=== PATIENT | female | born 1965 | race Caucasian/White ===

== ENCOUNTER 2018-10-06 18:55 | Observation (INO) | payer OTHER ==
[2018-10-06] MEDS ORDERED: Zofran 4 MG/2 ML VIAL IV STA (19:24)
[2018-10-06] MEDS ORDERED: Rocephin 1000 MG INJ IV STA (19:24)
[2018-10-06] MEDS ORDERED: Sodium Chloride 0.9% 1000 ML 1,000 ML IV STA (19:24)
[2018-10-06] MEDS ORDERED: TYLENOL 325 MG PO STA (19:24)
--- NOTE | 2018-10-06 19:24 | ERPHSYRPT ---
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: Acetaminophen Associated Symptoms: muscle aches, sore throat, weakness Allergies/Adverse Reactions: No Known Drug Allergies Allergy (Unverified 10/06/18 19:13) Home Medications: Metformin HCl 500 mg [Glucophage 500 MG] 1 tablet PO DAILY 10/06/18 [ History] - Review of Systems Constitutional: Fever, Fatigue, Malaise, Weakness, No Chills Eyes: No Symptoms Ears, Nose, & Throat: Nose Congestion, Throat Pain Respiratory: Cough, No Dyspnea Cardiac: No Chest Pain, No Edema, No Syncope Abdominal/Gastrointestinal: Nausea, No Abdominal Pain, No Vomiting, No Diarrhea Genitourinary Symptoms: No Dysuria Musculoskeletal: Myalgias, No Back Pain, No Neck Pain Skin: No Rash Neurological: Dizziness, No Focal Weakness, No Sensory Changes Psychological: No Symptoms Endocrine: No Symptoms Hematologic/Lymphatic: No Symptoms Immunological/Allergic: No Symptoms All Other Systems: Reviewed and Negative - Nursing Vital Signs Nursing Vital Signs: Initial Vital Signs Temperature 102.6 F 10/06/18 19:15 Pulse Rate 133 H 10/06/18 19:15 Respiratory Rate 18 10/06/18 19:15 Blood Pressure 142/86 10/06/18 19:15 O2 Sat by Pulse Oximetry 94 L 10/06/18 19:15 Pain Scale Pain Intensity 7 - Physical Exam General Appearance: no apparent distress, alert Eye Exam: PERRL/EOMI ENT Exam: nasal congestion, pharyngeal erythema, airway intact, No tonsillar exudate, No muffled/hoarse voice Neck Exam: non-tender, supple, full range of motion, trachea midline, No stiff neck, No Brudzinski's sign, No Kernig's sign, No meningismus Respiratory Exam: normal breath sounds, lungs clear, no respiratory distress, No accessory muscle use, No wheezing Cardiovascular/Chest Exam: normal heart sounds, regular rate/rhythm, No murmur, No edema Gastrointestinal/Abdominal Exam: soft, non tender, no distention, no mass, no guarding Extremity Exam: non-tender, normal range of motion, normal inspection, normal capillary refill Neurologic Exam: alert, oriented x 3, cooperative, 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, normal mood/affect, sensation nml, No motor deficits Skin Exam: normal color, warm, dry, No rash SpO2 Interpretation: borderline oxygenation O2 Delivery: Room Air - Course Nursing assessment & vital signs reviewed: Yes EKG Interpreted by Me: Sinus Tach, NORMAL AXIS, NORMAL INTERVALS, Non-specific ST Changes - Radiology Exams Chest X-ray Interpretation: Reviewed by me, Infiltrates (RML), Pneumonia Ordered Tests: Active Orders 24 hr Category Date Time Status Custom Miller STAT Care 10/06/18 19:27 Active Clean Catch Urine Specimen STAT Care 10/06/18 19:24 Active EKG-ER Only STAT Care 10/06/18 19:24 Active IV Insertion STAT Care 10/06/18 19:24 Active Pulse Oximetry (ED) STAT Care 10/06/18 19:24 Active CHEST 2 VIEWS (PA AND LAT) Stat Exams 10/06/18 19:26 Taken CBC W DIFF Stat Lab 10/06/18 19:50 Completed CMP Stat Lab 10/06/18 19:50 Completed HCG QUALITATIVE,SERUM Stat Lab 10/06/18 19:50 Completed Lactic Acid Stat Lab 10/06/18 20:43 Completed Dyer Screen Stat Lab 10/06/18 19:50 Completed T4 (Thyroxine) Stat Lab 10/06/18 19:50 Completed TROPONIN Q3H Lab 10/06/18 19:50 Completed TROPONIN Q3H Lab 10/06/18 22:30 Ordered TSH [TSH, 3RD Generation] Stat Lab 10/06/18 19:50 Completed UA W/RFX UR CULTURE Stat Lab 10/06/18 19:26 Uncollected Medication Summary Generic Name Dose Route Start Last Admin Trade Name Freq PRN Reason Stop Dose Admin Ceftriaxone Sodium mg 10/06/18 19:24 Rocephin 1000 Mg Inj IV 10/06/18 19:25 STAT STA Discontinued Medications Generic Name Dose Route Start Last Admin Trade Name Freq PRN Reason Stop Dose Admin Acetaminophen 650 mg 10/06/18 19:24 10/06/18 19:54 Tylenol 325 Mg PO 10/06/18 19:25 650 mg STAT STA Administration Acetaminophen Confirm 10/06/18 19:46 Tylenol 325 Mg Administered 10/06/18 19:47 Dose 650 mg .ROUTE .STK-MED ONE Sodium Chloride 1,000 mls @ 999 mls/hr 10/06/18 19:24 10/06/18 19:50 Sodium Chloride 0.9% 1000 Ml IV 10/06/18 20:24 999 mls/hr .Q1H1M STA Administration Sodium Chloride Confirm 10/06/18 19:47 Sodium Chloride 0.9% 1000 Ml Administered 10/06/18 19:48 Dose 1,000 mls @ ud .ROUTE .STK-MED ONE Azithromycin 500 mg in 250 mls @ 250 mls/hr 10/06/18 20:03 Zithromax 500 Mg/ 250 Ml Nacl Premix IV 10/06/18 21:02 STAT STA Ceftriaxone Sodium/Dextrose 1 g in 50 mls @ 100 mls/hr 10/06/18 20:17 20:24 Rocephin 1 Gm-D5w 50 Ml Bag IV 10/06/18 20:46 100 mls/hr STAT STA 100 mls/hr Administration Ceftriaxone Sodium/Dextrose Confirm 10/06/18 20:19 Rocephin 1 Gm-D5w 50 Ml Bag Administered 10/06/18 20:20 Dose 1 g in 50 mls @ ud IV .STK-MED ONE Ondansetron HCl 4 mg 10/06/18 19:24 10/06/18 19:49 Zofran 4 Mg/2 Ml Vial IV 10/06/18 19:25 4 mg STAT STA Administration Ondansetron HCl Confirm 10/06/18 19:46 Zofran 4 Mg/2 Ml Vial Administered 10/06/18 19:47 Dose 4 mg .ROUTE .STK-MED ONE Lab/Rad Data: Laboratory Result Diagrams 10/06/18 19:50 10/06/18 19:50 Laboratory Results 10/06/18 10/06/18 10/06/18 Range/Units 20:43 19:50 19:50 WBC (4.0-10.5) K/mm3 RBC (4.1-5.4) M/mm3 Hgb (12.0-16.0) gm/dl Hct (35-47) % MCV (78-100) fl MCH (26-32) pg MCHC (32-36) g/dl RDW (11.5-14.0) % Plt Count (150-450) K/mm3 MPV (6-9.5) fl Gran % (36.0-66.0) % Eos # (Auto) (0-0.5) Absolute Lymphs (auto) (1.0-4.6) Absolute Monos (auto) (0.0-1.3) Lymphocytes % (24.0-44.0) % Monocytes % (0.0-12.0) % Eosinophils % (0.00-5.0) % Basophils % (0.0-0.4) % Absolute Granulocytes (1.4-6.9) Basophils # (0-0.4) Sodium (137-145) mmol/L Potassium (3.5-5.1) mmol/L Chloride (98-107) mmol/L Carbon Dioxide (22-30) mmol/L Anion Gap (5-15) MEQ/L BUN (7-17) mg/dL Creatinine (0.52-1.04) mg/dL Estimated GFR ML/MIN Glucose (74-106) mg/dL Lactic Acid 1.2 (0.4-2.0) Calcium (8.4-10.2) mg/dL Total Bilirubin (0.2-1.3) mg/dL AST (14-36) U/L ALT (0-35) U/L Alkaline Phosphatase (38-126) U/L Troponin I (0.000-0.034) ng/mL Serum Total Protein (6.3-8.2) g/dL Albumin (3.5-5.0) g/dL Thyroxine (T4) 8.21 (5.53-10.96) ug/dL TSH 3rd Generation 1.430 (0.47-4.68) mIU/L Serum , Qual (Negative) Monoscreen (Negative) Influenza Type A Ag (NEGATIVE) Influenza Type B Ag (NEGATIVE) RSV (PCR) (Negative) Group A Strep Antibody (NEGATIVE) 10/06/18 10/06/18 10/06/18 Range/Units 19:50 19:50 19:50 WBC (4.0-10.5) K/mm3 RBC (4.1-5.4) M/mm3 Hgb (12.0-16.0) gm/dl Hct (35-47) % MCV (78-100) fl MCH (26-32) pg MCHC (32-36) g/dl RDW (11.5-14.0) % Plt Count (150-450) K/mm3 MPV (6-9.5) fl Gran % (36.0-66.0) % Eos # (Auto) (0-0.5) Absolute Lymphs (auto) (1.0-4.6) Absolute Monos (auto) (0.0-1.3) Lymphocytes % (24.0-44.0) % Monocytes % (0.0-12.0) % Eosinophils % (0.00-5.0) % Basophils % (0.0-0.4) % Absolute Granulocytes (1.4-6.9) Basophils # (0-0.4) Sodium (137-145) mmol/L Potassium (3.5-5.1) mmol/L Chloride (98-107) mmol/L Carbon Dioxide (22-30) mmol/L Anion Gap (5-15) MEQ/L BUN (7-17) mg/dL Creatinine (0.52-1.04) mg/dL Estimated GFR ML/MIN Glucose (74-106) mg/dL Lactic Acid (0.4-2.0) Calcium (8.4-10.2) mg/dL Total Bilirubin (0.2-1.3) mg/dL AST (14-36) U/L ALT (0-35) U/L Alkaline Phosphatase (38-126) U/L Troponin I < 0.012 (0.000-0.034) ng/mL Serum Total Protein (6.3-8.2) g/dL Albumin (3.5-5.0) g/dL Thyroxine (T4) (5.53-10.96) ug/dL TSH 3rd Generation (0.47-4.68) mIU/L Serum , Qual NEGATIVE (Negative) Monoscreen NEGATIVE (Negative) Influenza Type A Ag POSITIVE (NEGATIVE) Influenza Type B Ag NEGATIVE (NEGATIVE) RSV (PCR) NEGATIVE (Negative) Group A Strep Antibody POSITIVE (NEGATIVE) 10/06/18 10/06/18 Range/Units 19:50 19:50 WBC 5.4 (4.0-10.5) K/mm3 RBC 4.35 (4.1-5.4) M/mm3 Hgb 12.7 (12.0-16.0) gm/dl Hct 39.0 (35-47) % MCV 89.7 (78-100) fl MCH 29.2 (26-32) pg MCHC 32.6 (32-36) g/dl RDW 13.3 (11.5-14.0) % Plt Count 171 (150-450) K/mm3 MPV 11.2 H (6-9.5) fl Gran % 81.6 H (36.0-66.0) % Eos # (Auto) 0.02 (0-0.5) Absolute Lymphs (auto) 0.60 L (1.0-4.6) Absolute Monos (auto) 0.36 (0.0-1.3) Lymphocytes % 11.1 L (24.0-44.0) % Monocytes % 6.7 (0.0-12.0) % Eosinophils % 0.4 (0.00-5.0) % Basophils % 0.2 (0.0-0.4) % Absolute Granulocytes 4.41 (1.4-6.9) Basophils # 0.01 (0-0.4) Sodium 137 (137-145) mmol/L Potassium 3.4 L (3.5-5.1) mmol/L Chloride 103 (98-107) mmol/L Carbon Dioxide 24 (22-30) mmol/L Anion Gap 14.3 (5-15) MEQ/L BUN 11 (7-17) mg/dL Creatinine 0.78 (0.52-1.04) mg/dL Estimated GFR > 60.0 ML/MIN Glucose 172 H (74-106) mg/dL Lactic Acid (0.4-2.0) Calcium 8.8 (8.4-10.2) mg/dL Total Bilirubin 0.40 (0.2-1.3) mg/dL AST 55 H (14-36) U/L ALT 93 H (0-35) U/L Alkaline Phosphatase 100 (38-126) U/L Troponin I (0.000-0.034) ng/mL Serum Total Protein 7.4 (6.3-8.2) g/dL Albumin 4.3 (3.5-5.0) g/dL Thyroxine (T4) (5.53-10.96) ug/dL TSH 3rd Generation (0.47-4.68) mIU/L Serum , Qual (Negative) Monoscreen (Negative) Influenza Type A Ag (NEGATIVE) Influenza Type B Ag (NEGATIVE) RSV (PCR) (Negative) Group A Strep Antibody (NEGATIVE) - Progress Progress: improved, re-examined Progress Note: 10/06/18 21:09 discussed with pt and Dr. Henao covering and all agree best to place pt in on obs and begin ab in hosp. Discussed with : Juliano Will see patient in: hospital (observation) Counseled pt/family regarding: lab results, diagnosis, need for follow-up, rad results - Departure Time of Disposition: 21:09 Departure Disposition: Observation Clinical Impression: Influenza A, RML pneumonia, strepthroat Condition: Good Critical Care Time: No Referrals: KENYA HORN, JIGNESH [Primary Care Provider] -
[2018-10-06] MEDS ORDERED: TYLENOL 325 MG ONE (19:46)
[2018-10-06] MEDS ORDERED: Zofran 4 MG/2 ML VIAL ONE (19:46)
[2018-10-06] MEDS ORDERED: Sodium Chloride 0.9% 1000 ML 1,000 ML ONE (19:47)
[2018-10-06] MEDS ORDERED: Zithromax 500 MG/ 250 ML NaCl Premix 500 MG/250 ML IVPB IV STA (20:03)
[2018-10-06 20:09] LABS: BASOPHIL % 0.2 % (0.0-0.4); Basophil (Absolute #) 0.01 (0-0.4); Eosinophil % 0.4 % (0.00-5.0); Eosinophil (Absolute #) 0.02 (0-0.5); Granulocyte Absolute (ANC) 4.41 (1.4-6.9); Granulocytes % 81.6 % (36.0-66.0); Hemoglobin 12.7 gm/dl (12.0-16.0); Lymphocytes % 11.1 % (24.0-44.0); Mean Cell Volume 89.7 fl (78-100); Mean Corpuscular Hemoglobin 29.2 pg (26-32); Mean Corpuscular Hgb Concent. 32.6 g/dl (32-36); Mean Platelet Volume 11.2 fl (6-9.5); Monocyte (Absolute #) 0.36 (0.0-1.3); Monocytes % 6.7 % (0.0-12.0); Platelet Count 171 K/mm3 (150-450); Red Blood Count 4.35 M/mm3 (4.1-5.4); Red Cell Distribution Width 13.3 % (11.5-14.0); White Blood Count 5.4 K/mm3 (4.0-10.5)
[2018-10-06] MEDS ORDERED: ROCEPHIN 1 Gm-D5w 50 ml Bag** 1 G/50 ML IVPB IV STA (20:17)
[2018-10-06] MEDS ORDERED: ROCEPHIN 1 Gm-D5w 50 ml Bag** 1 G/50 ML IVPB IV ONE (20:19)
[2018-10-06 20:24] LABS: HCG QUALITATIVE,SERUM NEGATIVE (Negative); Mono Screen NEGATIVE (Negative)
[2018-10-06 20:25] LABS: ALBUMIN 4.3 g/dL (3.5-5.0); ALKALINE PHOSPHATASE 100 U/L (38-126); ANION GAP 14.3 MEQ/L (5-15); BLOOD UREA NITROGEN 11 mg/dL (7-17); CHLORIDE 103 mmol/L (98-107); Calcium 8.8 mg/dL (8.4-10.2); Carbon Dioxide 24 mmol/L (22-30); Creatinine 1 0.78 mg/dL (0.52-1.04); Glucose 172 mg/dL (74-106); Potassium 3.4 mmol/L (3.5-5.1); SGOT/AST 55 U/L (14-36); SGPT/ALT 93 U/L (0-35); SODIUM 137 mmol/L (137-145); Total Protein 7.4 g/dL (6.3-8.2)
[2018-10-06 20:51] LABS: Group A Strep POSITIVE (NEGATIVE); INFLUENZA B NEGATIVE (NEGATIVE); RESPIRATORY SYNCTIAL VIRUS NEGATIVE (Negative)
[2018-10-06 20:52] LABS: INFLUENZA A POSITIVE (NEGATIVE)
[2018-10-06] MEDS ORDERED: Zithromax 500 MG/ 250 ML NaCl Premix 500 MG/250 ML IVPB IV ONE (21:38)
[2018-10-06 22:02] LABS: Appearance CLEAR (CLEAR); Bacteria RARE /HPF (NEGATIVE); Bilirubin NEGATIVE (NEGATIVE); Blood NEGATIVE Ery/ul (0-5); Glucose NEGATIVE (NEGATIVE); Ketones TRACE (NEGATIVE); Leukocyte Esterase NEGATIVE (NEGATIVE); Nitrite NEGATIVE (NEGATIVE); Protein,Urine Dip NEGATIVE (Negative); Specific Gravity 1.005 (1.005-1.025); Urobilinogen NEGATIVE mg/dL (0-1)
[2018-10-06] MEDS ORDERED: Phenergan 25 MG INJ IM PRN (22:47)
[2018-10-06] MEDS ORDERED: DUONEB 0.5-3 MG/3 ml Neb IH PRN (22:47)
[2018-10-06] MEDS ORDERED: MORPHINE SULFATE 2 MG INJ IV PRN (22:47)
[2018-10-06] MEDS: Tamiflu 75MG Capsule PO SCH (23:21)
[2018-10-06] MEDS: Sodium Chloride 0.9% 1000 ML 1,000 ML IV SCH (23:21)
[2018-10-07] MEDS: TYLENOL 325 MG PO PRN ×5 (00:18→20:26)
[2018-10-07] MEDS: Sodium Chloride 0.9% 1000 ML 1,000 ML IV SCH ×3 (06:07→18:44)
[2018-10-07 06:34] LABS: Basophil (Absolute #) 0 (0-0.4); Eosinophil % 0.2 % (0.00-5.0); Eosinophil (Absolute #) 0.01 (0-0.5); Granulocyte Absolute (ANC) 4.42 (1.4-6.9); Hemoglobin 11.7 gm/dl (12.0-16.0); Lymphocyte (Absolute #) 0.78 (1.0-4.6); Mean Cell Volume 91.6 fl (78-100); Mean Corpuscular Hgb Concent. 31.6 g/dl (32-36); Mean Platelet Volume 11.7 fl (6-9.5); Monocyte (Absolute #) 0.38 (0.0-1.3); Monocytes % 6.8 % (0.0-12.0); Platelet Count 153 K/mm3 (150-450); Red Blood Count 4.04 M/mm3 (4.1-5.4); Red Cell Distribution Width 13.5 % (11.5-14.0); White Blood Count 5.6 K/mm3 (4.0-10.5)
[2018-10-07 06:46] LABS: Mean Corpuscular Hemoglobin 28.9 pg (26-32)
[2018-10-07 06:51] LABS: ALKALINE PHOSPHATASE 80 U/L (38-126); ANION GAP 12.8 MEQ/L (5-15); BLOOD UREA NITROGEN 6 mg/dL (7-17); CHLORIDE 103 mmol/L (98-107); Calcium 8.3 mg/dL (8.4-10.2); Carbon Dioxide 27 mmol/L (22-30); Glucose 161 mg/dL (74-106); Potassium 3.6 mmol/L (3.5-5.1); SGOT/AST 37 U/L (14-36); SGPT/ALT 71 U/L (0-35); SODIUM 138 mmol/L (137-145); Total Protein 6.8 g/dL (6.3-8.2)
--- NOTE | 2018-10-07 08:08 | XRAY ---
Indication: Cough. Flu symptoms. Comparison: None PA/lateral chest demonstrates small focus right infrahilar infiltrate versus atelectasis. Remaining heart and lungs unremarkable. Bony thorax intact with mild degenerative changes.
[2018-10-07] MEDS: Tamiflu 75MG Capsule PO SCH ×2 (08:24→22:21)
[2018-10-07] MEDS: NovoLIN R SQ PRN ×4 (08:25→22:21)
--- NOTE | 2018-10-07 11:59 | PCM.HP ---
History of Present Illness - Chief Complaint Chief Complaint: Influenza A, RML pneumonia, Strepthroat History of Present Illness: is a 52 year old female pt of Dr. Tang with DM who was admitted through ER with influenza A, Group A streptococcus, and RML pneumonia. She started having upper respiratory sx 5d ago but felt better over the next 2d. Then 3d ago she started having body aches, fever, and increased cough. At home she started feeling dizzy (lightheaded) and asked to be taken to the ER , as she was just home with her daughter ( works away from home). denies syncope. Last night she required morphine for the achiness, but today she took tylenol and is feeling better. Her maximum temperature was 102.6 at admission and she has been afebrile since then. The RN noted that when she is up her oxygen decreases to 88% and her HR increases over 120 bpm. - Review of Systems Constitutional: Fever Ears, Nose, & Throat: Nose Congestion, Throat Pain Respiratory: Cough, Short Of Breath Abdominal/Gastrointestinal: Nausea Musculoskeletal: Myalgias Neurological: Dizziness All Other Systems: Reviewed and Negative Medications & Allergies Home Medications: Home Medication List Metformin HCl 500 mg [Glucophage 500 MG] 1 tablet PO BID 10/06/18 [ History Confirmed 10/07/18] Allergies/Adverse Reactions: Allergies Allergy/AdvReac Type Severity Reaction Status Date / Time No Known Drug Allergies Allergy Unverified 10/06/18 19:13 - Past Medical History Past Medical History: Yes Neurological History: No Pertinent History ENT History: No Pertinent History Cardiac History: No Pertinent History Respiratory History: No Pertinent History Endocrine Medical History: Diabetes Type II Musculoskelatal History: No Pertinent History GI Medical History: No Pertinent History History: No Pertinent History Pyscho-Social History: No Pertinent History Reproductive Disorders: No Pertinent History - Female History Hx Last Menstrual Period: Hysterectomy 2004 Are you now?: No - Past Surgical History Past Surgical History: Yes Neuro Surgical History: No Pertinent History Cardiac History: No Pertinent History Respiratory Surgery: No Pertinent History GI Surgical History: No Pertinent History Genitourinary Surgical Hx: No Pertinent History Musculskeletal Surgical Hx: No Pertinent History Female Surgical History: Hysterectomy, Section, Other Other Surgical History: Endometriosis - Social History Smoking Status: Never smoker Exposure to second hand smoke: No Alcohol: None Drug Use: none - Physical Exam Vital Signs: Vital Signs - 24 hr Temp Pulse Resp BP Pulse Ox 10/07/18 11:00 99.4 F 107 H 20 104/55 93 L 10/07/18 08:00 20 10/07/18 07:26 98.9 F 78 20 123/66 97 10/07/18 04:30 99.8 F 123 H 24 132/75 97 10/07/18 00:36 111 H 17 96 10/07/18 00:21 99.6 F 103 H 18 130/69 96 10/06/18 21:30 108 H 16 129/77 94 L 10/06/18 20:40 105 H 18 95 10/06/18 20:01 93 L 10/06/18 19:50 113 H 20 122/73 92 L 10/06/18 19:15 102.6 F 133 H 18 142/86 94 L General Appearance: no apparent distress (sitting up in chair), alert Neurologic Exam: oriented x 3, cooperative Eye Exam: eyes nml inspection Ears, Nose, Throat Exam: pharynx normal, moist mucous membranes, No pharyngeal erythema Neck Exam: lymphadenopathy (+ L cervical LAD, ttp) Respiratory Exam: normal breath sounds, wheezing (faint exp scattered), No crackles/rales, No rhonchi Cardiovascular Exam: regular rate/rhythm, normal heart sounds, No murmur Gastrointestinal/Abdomen Exam: soft, normal bowel sounds, No tenderness, No distention, No mass, No guarding, No rebound Back Exam: normal inspection, No rash Extremity Exam: normal inspection, No pedal edema, No swelling Skin Exam: normal color, warm, dry, No rash Results - Labs Lab/Micro Results: Accuchecks Date 10/07/18 Time 07:30 Accucheck Value: 162 Accucheck Value: 146 Lab Results-Last 24 Hours 10/06/18 10/06/18 10/06/18 Range/Units 19:26 19:50 19:50 WBC 5.4 (4.0-10.5) K/mm3 RBC 4.35 (4.1-5.4) M/mm3 Hgb 12.7 (12.0-16.0) gm/dl Hct 39.0 (35-47) % MCV 89.7 (78-100) fl MCH 29.2 (26-32) pg MCHC 32.6 (32-36) g/dl RDW 13.3 (11.5-14.0) % Plt Count 171 (150-450) K/mm3 MPV 11.2 H (6-9.5) fl Gran % 81.6 H (36.0-66.0) % Eos # (Auto) 0.02 (0-0.5) Absolute Lymphs (auto) 0.60 L (1.0-4.6) Absolute Monos (auto) 0.36 (0.0-1.3) Lymphocytes % 11.1 L (24.0-44.0) % Monocytes % 6.7 (0.0-12.0) % Eosinophils % 0.4 (0.00-5.0) % Basophils % 0.2 (0.0-0.4) % Absolute Granulocytes 4.41 (1.4-6.9) Basophils # 0.01 (0-0.4) Sodium 137 (137-145) mmol/L Potassium 3.4 L (3.5-5.1) mmol/L Chloride 103 (98-107) mmol/L Carbon Dioxide 24 (22-30) mmol/L Anion Gap 14.3 (5-15) MEQ/L BUN 11 (7-17) mg/dL Creatinine 0.78 (0.52-1.04) mg/dL Estimated GFR > 60.0 ML/MIN Glucose 172 H (74-106) mg/dL Hemoglobin A1c (4.5-6.0) % Lactic Acid (0.4-2.0) Calcium 8.8 (8.4-10.2) mg/dL Total Bilirubin 0.40 (0.2-1.3) mg/dL AST 55 H (14-36) U/L ALT 93 H (0-35) U/L Alkaline Phosphatase 100 (38-126) U/L Troponin I (0.000-0.034) ng/mL Serum Total Protein 7.4 (6.3-8.2) g/dL Albumin 4.3 (3.5-5.0) g/dL Thyroxine (T4) (5.53-10.96) ug/dL TSH 3rd Generation (0.47-4.68) mIU/L Serum , Qual (Negative) Urine Color STRAW (YELLOW) Urine Appearance CLEAR (CLEAR) Urine pH 6.0 (5-6) Ur Specific [place] 1.005 (1.005-1.025) Urine Protein NEGATIVE (Negative) Urine Ketones TRACE (NEGATIVE) Urine Blood NEGATIVE (0-5) Usama/ul Urine Nitrite NEGATIVE (NEGATIVE) Urine Bilirubin NEGATIVE (NEGATIVE) Urine Urobilinogen NEGATIVE (0-1) mg/dL Ur Leukocyte Esterase NEGATIVE (NEGATIVE) Urine WBC (Auto) NONE (0-5) /HPF Urine RBC (Auto) NONE (0-2) /HPF U Epithel Cells (Auto) NONE (FEW) /HPF Urine Bacteria (Auto) RARE (NEGATIVE) /HPF Urine Culture Reflexed NO (NO) Urine Glucose NEGATIVE (NEGATIVE) mg/dL Monoscreen (Negative) Influenza Type A Ag (NEGATIVE) Influenza Type B Ag (NEGATIVE) RSV (PCR) (Negative) Group A Strep Antibody (NEGATIVE) 10/06/18 10/06/18 10/06/18 Range/Units 19:50 19:50 19:50 WBC (4.0-10.5) K/mm3 RBC (4.1-5.4) M/mm3 Hgb (12.0-16.0) gm/dl Hct (35-47) % MCV (78-100) fl MCH (26-32) pg MCHC (32-36) g/dl RDW (11.5-14.0) % Plt Count (150-450) K/mm3 MPV (6-9.5) fl Gran % (36.0-66.0) % Eos # (Auto) (0-0.5) Absolute Lymphs (auto) (1.0-4.6) Absolute Monos (auto) (0.0-1.3) Lymphocytes % (24.0-44.0) % Monocytes % (0.0-12.0) % Eosinophils % (0.00-5.0) % Basophils % (0.0-0.4) % Absolute Granulocytes (1.4-6.9) Basophils # (0-0.4) Sodium (137-145) mmol/L Potassium (3.5-5.1) mmol/L Chloride (98-107) mmol/L Carbon Dioxide (22-30) mmol/L Anion Gap (5-15) MEQ/L BUN (7-17) mg/dL Creatinine (0.52-1.04) mg/dL Estimated GFR ML/MIN Glucose (74-106) mg/dL Hemoglobin A1c (4.5-6.0) % Lactic Acid (0.4-2.0) Calcium (8.4-10.2) mg/dL Total Bilirubin (0.2-1.3) mg/dL AST (14-36) U/L ALT (0-35) U/L Alkaline Phosphatase (38-126) U/L Troponin I < 0.012 (0.000-0.034) ng/mL Serum Total Protein (6.3-8.2) g/dL Albumin (3.5-5.0) g/dL Thyroxine (T4) (5.53-10.96) ug/dL TSH 3rd Generation (0.47-4.68) mIU/L Serum , Qual NEGATIVE (Negative) Urine Color (YELLOW) Urine Appearance (CLEAR) Urine pH (5-6) Ur Specific [place] (1.005-1.025) Urine Protein (Negative) Urine Ketones (NEGATIVE) Urine Blood (0-5) Usama/ul Urine Nitrite (NEGATIVE) Urine Bilirubin (NEGATIVE) Urine Urobilinogen (0-1) mg/dL Ur Leukocyte Esterase (NEGATIVE) Urine WBC (Auto) (0-5) /HPF Urine RBC (Auto) (0-2) /HPF U Epithel Cells (Auto) (FEW) /HPF Urine Bacteria (Auto) (NEGATIVE) /HPF Urine Culture Reflexed (NO) Urine Glucose (NEGATIVE) mg/dL Monoscreen NEGATIVE (Negative) Influenza Type A Ag POSITIVE (NEGATIVE) Influenza Type B Ag NEGATIVE (NEGATIVE) RSV (PCR) NEGATIVE (Negative) Group A Strep Antibody POSITIVE (NEGATIVE) 10/06/18 10/06/18 10/06/18 Range/Units 19:50 19:50 20:43 WBC (4.0-10.5) K/mm3 RBC (4.1-5.4) M/mm3 Hgb (12.0-16.0) gm/dl Hct (35-47) % MCV (78-100) fl MCH (26-32) pg MCHC (32-36) g/dl RDW (11.5-14.0) % Plt Count (150-450) K/mm3 MPV (6-9.5) fl Gran % (36.0-66.0) % Eos # (Auto) (0-0.5) Absolute Lymphs (auto) (1.0-4.6) Absolute Monos (auto) (0.0-1.3) Lymphocytes % (24.0-44.0) % Monocytes % (0.0-12.0) % Eosinophils % (0.00-5.0) % Basophils % (0.0-0.4) % Absolute Granulocytes (1.4-6.9) Basophils # (0-0.4) Sodium (137-145) mmol/L Potassium (3.5-5.1) mmol/L Chloride (98-107) mmol/L Carbon Dioxide (22-30) mmol/L Anion Gap (5-15) MEQ/L BUN (7-17) mg/dL Creatinine (0.52-1.04) mg/dL Estimated GFR ML/MIN Glucose (74-106) mg/dL Hemoglobin A1c (4.5-6.0) % Lactic Acid 1.2 (0.4-2.0) Calcium (8.4-10.2) mg/dL Total Bilirubin (0.2-1.3) mg/dL AST (14-36) U/L ALT (0-35) U/L Alkaline Phosphatase (38-126) U/L Troponin I (0.000-0.034) ng/mL Serum Total Protein (6.3-8.2) g/dL Albumin (3.5-5.0) g/dL Thyroxine (T4) 8.21 (5.53-10.96) ug/dL TSH 3rd Generation 1.430 (0.47-4.68) mIU/L Serum , Qual (Negative) Urine Color (YELLOW) Urine Appearance (CLEAR) Urine pH (5-6) Ur Specific [place] (1.005-1.025) Urine Protein (Negative) Urine Ketones (NEGATIVE) Urine Blood (0-5) Usama/ul Urine Nitrite (NEGATIVE) Urine Bilirubin (NEGATIVE) Urine Urobilinogen (0-1) mg/dL Ur Leukocyte Esterase (NEGATIVE) Urine WBC (Auto) (0-5) /HPF Urine RBC (Auto) (0-2) /HPF U Epithel Cells (Auto) (FEW) /HPF Urine Bacteria (Auto) (NEGATIVE) /HPF Urine Culture Reflexed (NO) Urine Glucose (NEGATIVE) mg/dL Monoscreen (Negative) Influenza Type A Ag (NEGATIVE) Influenza Type B Ag (NEGATIVE) RSV (PCR) (Negative) Group A Strep Antibody (NEGATIVE) 10/06/18 10/07/18 10/07/18 Range/Units 23:00 05:15 05:15 WBC 5.6 (4.0-10.5) K/mm3 RBC 4.04 L (4.1-5.4) M/mm3 Hgb 11.7 L (12.0-16.0) gm/dl Hct 37.0 (35-47) % MCV 91.6 (78-100) fl MCH 28.9 (26-32) pg MCHC 31.6 L (32-36) g/dl RDW 13.5 (11.5-14.0) % Plt Count 153 (150-450) K/mm3 MPV 11.7 H (6-9.5) fl Gran % 79.0 H (36.0-66.0) % Eos # (Auto) 0.01 (0-0.5) Absolute Lymphs (auto) 0.78 L (1.0-4.6) Absolute Monos (auto) 0.38 (0.0-1.3) Lymphocytes % 14.0 L (24.0-44.0) % Monocytes % 6.8 (0.0-12.0) % Eosinophils % 0.2 (0.00-5.0) % Basophils % 0.0 (0.0-0.4) % Absolute Granulocytes 4.42 (1.4-6.9) Basophils # 0 (0-0.4) Sodium 138 (137-145) mmol/L Potassium 3.6 (3.5-5.1) mmol/L Chloride 103 (98-107) mmol/L Carbon Dioxide 27 (22-30) mmol/L Anion Gap 12.8 (5-15) MEQ/L BUN 6 L (7-17) mg/dL Creatinine 0.80 (0.52-1.04) mg/dL Estimated GFR > 60.0 ML/MIN Glucose 161 H (74-106) mg/dL Hemoglobin A1c (4.5-6.0) % Lactic Acid (0.4-2.0) Calcium 8.3 L (8.4-10.2) mg/dL Total Bilirubin 0.30 (0.2-1.3) mg/dL AST 37 H (14-36) U/L ALT 71 H (0-35) U/L Alkaline Phosphatase 80 (38-126) U/L Troponin I < 0.012 (0.000-0.034) ng/mL Serum Total Protein 6.8 (6.3-8.2) g/dL Albumin 4.0 (3.5-5.0) g/dL Thyroxine (T4) (5.53-10.96) ug/dL TSH 3rd Generation (0.47-4.68) mIU/L Serum , Qual (Negative) Urine Color (YELLOW) Urine Appearance (CLEAR) Urine pH (5-6) Ur Specific [place] (1.005-1.025) Urine Protein (Negative) Urine Ketones (NEGATIVE) Urine Blood (0-5) Usama/ul Urine Nitrite (NEGATIVE) Urine Bilirubin (NEGATIVE) Urine Urobilinogen (0-1) mg/dL Ur Leukocyte Esterase (NEGATIVE) Urine WBC (Auto) (0-5) /HPF Urine RBC (Auto) (0-2) /HPF U Epithel Cells (Auto) (FEW) /HPF Urine Bacteria (Auto) (NEGATIVE) /HPF Urine Culture Reflexed (NO) Urine Glucose (NEGATIVE) mg/dL Monoscreen (Negative) Influenza Type A Ag (NEGATIVE) Influenza Type B Ag (NEGATIVE) RSV (PCR) (Negative) Group A Strep Antibody (NEGATIVE) 10/07/18 Range/Units 05:15 WBC (4.0-10.5) K/mm3 RBC (4.1-5.4) M/mm3 Hgb (12.0-16.0) gm/dl Hct (35-47) % MCV (78-100) fl MCH (26-32) pg MCHC (32-36) g/dl RDW (11.5-14.0) % Plt Count (150-450) K/mm3 MPV (6-9.5) fl Gran % (36.0-66.0) % Eos # (Auto) (0-0.5) Absolute Lymphs (auto) (1.0-4.6) Absolute Monos (auto) (0.0-1.3) Lymphocytes % (24.0-44.0) % Monocytes % (0.0-12.0) % Eosinophils % (0.00-5.0) % Basophils % (0.0-0.4) % Absolute Granulocytes (1.4-6.9) Basophils # (0-0.4) Sodium (137-145) mmol/L Potassium (3.5-5.1) mmol/L Chloride (98-107) mmol/L Carbon Dioxide (22-30) mmol/L Anion Gap (5-15) MEQ/L BUN (7-17) mg/dL Creatinine (0.52-1.04) mg/dL Estimated GFR ML/MIN Glucose (74-106) mg/dL Hemoglobin A1c 6.23 H (4.5-6.0) % Lactic Acid (0.4-2.0) Calcium (8.4-10.2) mg/dL Total Bilirubin (0.2-1.3) mg/dL AST (14-36) U/L ALT (0-35) U/L Alkaline Phosphatase (38-126) U/L Troponin I (0.000-0.034) ng/mL Serum Total Protein (6.3-8.2) g/dL Albumin (3.5-5.0) g/dL Thyroxine (T4) (5.53-10.96) ug/dL TSH 3rd Generation (0.47-4.68) mIU/L Serum , Qual (Negative) Urine Color (YELLOW) Urine Appearance (CLEAR) Urine pH (5-6) Ur Specific [place] (1.005-1.025) Urine Protein (Negative) Urine Ketones (NEGATIVE) Urine Blood (0-5) Usama/ul Urine Nitrite (NEGATIVE) Urine Bilirubin (NEGATIVE) Urine Urobilinogen (0-1) mg/dL Ur Leukocyte Esterase (NEGATIVE) Urine WBC (Auto) (0-5) /HPF Urine RBC (Auto) (0-2) /HPF U Epithel Cells (Auto) (FEW) /HPF Urine Bacteria (Auto) (NEGATIVE) /HPF Urine Culture Reflexed (NO) Urine Glucose (NEGATIVE) mg/dL Monoscreen (Negative) Influenza Type A Ag (NEGATIVE) Influenza Type B Ag (NEGATIVE) RSV (PCR) (Negative) Group A Strep Antibody (NEGATIVE) Accuchecks Date 02/17/19 Time 07:30 Accucheck Value: 162 Accucheck Value: 146 - Radiology Impressions Radiology Exams & Impressions: Radiology Procedures Category Date Time Status CHEST 2 VIEWS (PA AND LAT) Stat Exams 10/06/18 19:26 Completed - Other Procedures and Tests Respiratory Therapy 10/07/18 00:40 Respiratory Therapy Assessment DAILY Assessment/Plan (1) Influenza A Current Visit: Yes Status: Acute Assessment & Plan: Tamiflu was started around the 48hour point. Code(s): J10.1 - FLU DUE TO OTH IDENT INFLUENZA VIRUS W OTH RESP MANIFEST (2) RML pneumonia Current Visit: Yes Status: Acute Qualifiers: Pneumonia type: due to unspecified organism Qualified Code(s): J18.1 - Lobar pneumonia, unspecified organism Assessment & Plan: The pneumonia is not a consolidation, but rather infiltrate vs atelectasis. will add nebulizer treatment and see if it helps. She was feeling so much better today, I was planning to send her home. However , after talking to the nurse, since she has some hypoxemia, will likely keep her overnight at least. Code(s): J18.1 - LOBAR PNEUMONIA, UNSPECIFIED ORGANISM (3) Strep throat Current Visit: Yes Status: Acute Assessment & Plan: add chloraseptic spray. the throat really looks clinically benign this morning. Code(s): J02.0 - STREPTOCOCCAL PHARYNGITIS (4) Diabetes mellitus Current Visit: Yes Status: Acute Qualifiers: Diabetes mellitus type: type 2 Diabetes mellitus skilled nursing insulin use: without terminal block assembler use Diabetes mellitus complication status: without complication Qualified Code(s): E11.9 - Type 2 diabetes mellitus without complications Assessment & Plan: BS mid 100s here. Code(s): E11.9 - TYPE 2 DIABETES MELLITUS WITHOUT COMPLICATIONS
[2018-10-07] MEDS: CHLORASEPTIC SPRAY 180 ML PO SCH ×3 (12:24→22:21)
[2018-10-07] MEDS ORDERED: ROCEPHIN 1 Gm-D5w 50 ml Bag** 1 G/50 ML IVPB IV SCH (22:00)
[2018-10-08] MEDS: NovoLIN R SQ PRN ×2 (00:17→04:54)
[2018-10-08] MEDS: Sodium Chloride 0.9% 1000 ML 1,000 ML IV SCH ×2 (01:19→07:52)
[2018-10-08] MEDS: TYLENOL 325 MG PO PRN (03:57)
[2018-10-08 08:10] VITALS: BP 135/66
--- NOTE | 2018-10-08 08:54 | PCM.DS ---
Discharge Summary Date of Admission: 10/06/18 22:29 Admitting Physician: MARIA ANTONIA CONRAD Primary Care Provider: ABDELRAHMAN RODARTE NAIN Allergies Allergies No Known Drug Allergies Allergy (Unverified 10/06/18 19:13) Hospital Summary - Hospital Course Hospital Course: patient was admitted with influenza, strep and infiltrate vs atelectasis rt lung. she is feeling much better since admission, tolerating po, afebrile and no oxygen requirements - Vitals & Intake/Output Vital Signs: Vital Signs Temperature 97.8 F 10/08/18 08:00 Pulse Rate 76 10/08/18 08:00 Respiratory Rate 18 10/08/18 08:00 Blood Pressure 135/66 10/08/18 08:00 O2 Sat by Pulse Oximetry 95 10/08/18 08:00 Oxygen-Last Documented O2 Percentage 2 Liters = 28% Intake & Output: Intake & Output 10/05/18 10/06/18 10/07/18 10/08/18 11:59 11:59 11:59 11:59 Intake Total 1786 5054 Output Total 1500 5300 Balance 286 -246 Weight 93.8 kg 94 kg - Lab Result Diagrams: 10/07/18 05:15 10/07/18 05:15 Lab Results-Last 24 Hrs: Accuchecks Date 10/07/18 Date 10/07/18 Time 16:00 Time 12:00 Accucheck Value: 153 Accucheck Value: 185 Accucheck Value: 180 Accucheck Value: 199 Accucheck Value: 153 Lab Results-Last 24 Hours 10/07/18 Range/Units 05:15 Hemoglobin A1c 6.23 H (4.5-6.0) % Micro Results-Entire Visit: Accuchecks Date 10/07/18 Date 10/07/18 Time 16:00 Time 12:00 Accucheck Value: 153 Accucheck Value: 185 Accucheck Value: 180 Accucheck Value: 199 Accucheck Value: 153 - Radiology Exams Ordered Rad Exams-Entire Visit: Radiology Procedures Category Date Time Status CHEST 2 VIEWS (PA AND LAT) Stat Exams 10/06/18 19:26 Completed - Procedures and Test Procedures and Tests throughout Hospitalization: Therapy Orders & Screens 10/06/18 22:47 Respiratory Therapy Consult ROUTINE Comment: Reason For Exam: 10/07/18 00:40 Respiratory Therapy Assessment DAILY Comment: 10/07/18 12:28 Oxygen Nasal Cannula 3 lpm Comment: Diagnosis: Influenza A, RML pneumonia, Strepthroat 10/07/18 12:37 Peak Expiratory Flow Rate ONCE Comment: Reason For Exam: Diagnosis: Influenza A, RML pneumonia, Strepthroat Discharge Exam General Appearance: no apparent distress, alert Skin Exam: normal color, warm, dry Respiratory Exam: normal breath sounds, lungs clear, No respiratory distress Cardiovascular Exam: regular rate/rhythm, normal heart sounds Gastrointestinal/Abdomen Exam: soft, No tenderness, No mass Extremity Exam: normal inspection, normal range of motion Final Diagnosis/Problem List - Final Discharge Diagnosis/Problem (1) Influenza A Current Visit: Yes Status: Acute Assessment & Plan: complete 5 day course of tamiflu (2) RML pneumonia Current Visit: Yes Status: Acute Assessment & Plan: likely viral, will tx with omnicef (3) Strep throat Current Visit: Yes Status: Acute Assessment & Plan: omnicef - Discharge Disposition: Home, Self-Care Condition: Good Prescriptions: New Cefdinir 300 mg PO BID #14 capsule Oseltamivir 75 mg [Tamiflu 75MG Capsule] 75 mg PO BID #6 cap Continue Metformin HCl 500 mg [Glucophage 500 MG] 1 tablet PO BID Follow up with: ABDELRAHMAN RODARTE MD [Primary Care Provider] - 1 Week
[2018-10-08 08:59] VITALS: PULSE 86; O2SAT 98
[2018-10-08] MEDS: Tamiflu 75MG Capsule PO SCH (09:11)
[2018-10-08] MEDS: CHLORASEPTIC SPRAY 180 ML PO SCH (09:12)
== END 2018-10-08 09:55 | disposition home or self-care (01) ==
LOC: ED 18:55 → MED SURG 22:29
PROVIDERS: ADMIT Family Medicine; ATTEND Family Medicine
DX: J10.1 Influenza due to other identified influenza virus with other respiratory manifestations (principal); J18.1 Lobar pneumonia, unspecified organism; J02.0 Streptococcal pharyngitis; E11.9 Type 2 diabetes mellitus without complications; Z79.4 Long term (current) use of insulin
CPT/HCPCS: 36000; 36415; 71046; 80053; 81001; 81025; 82962; 83036; 83605; 84436; 84443; 84484; 85025; 86308; 87631; 87651; 93005; 93041; 93268; 94150; 94640; 94760; 96360; 96365; 96367; 96374; 99285; G0378; J0456; J0696; J2270; J2405; J2550; A9270-GY